=== PATIENT | male | born 1965 | race Caucasian/White ===

== ENCOUNTER 2022-07-23 18:40 | Emergency (ER) | payer OTHER ==
[2022-07-23 19:20] VITALS: BP 144/90; PULSE 78; RESP 18; TEMP 97.8; BMI 29.5
[2022-07-23 19:57] LABS: HEMATOCRIT 44.9 % (35.4-49); HEMOGLOBIN 15.8 G/dL (11.7-16.9); MCHC 35.1 g/dl (32.0-35.9); MEAN CELL VOLUME 91.2 fl (80-96); MEAN PLT VOLUME 8.1 fl (7.5-11.1); PLATELET COUNT 219.5 10^3/uL (134-434); RBC 4.92 10^6/uL (4.00-5.60); RDW 13.5 % (11.9-15.9); WHITE BLOOD COUNT 7.3 10^3/uL (4.0-10.8)
[2022-07-23 20:03] LABS: EPITHELIAL CELLS RARE /hpf
[2022-07-23 20:17] LABS: ALBUMIN 4.5 g/dl (3.4-5.0); BILIRUBIN,TOTAL 0.9 mg/dl (0.2-1); CALCIUM 9.8 mg/dl (8.5-10); TOT PROT 6.6 g/dl (6.4-8.2)
== END 2022-07-23 21:26 | disposition home or self-care (01) ==
LOC: FER 18:40
DX: N23 Unspecified renal colic (principal)
CPT/HCPCS: 36415; 74176-TC; 80053; 81003; 81015; 85027; 99284-25